=== PATIENT | female | born 1945 | race Caucasian/White ===

== ENCOUNTER → 2017-02-18 | Outpatient (CLI) | payer OTHER ==
[~2017-02-18] MED LIST: CADUET PO; CALCIUM500 MG PO; DOXYCYCLINE HY100 M1 PO; NAPROSYN500 MG PO; OSTEO BIFLEX PO; PREDNISONE PO; VENTOLIN5 MG/ML IH
--- NOTE | ~2017-02-18 | MY27 ---
[facility] A Service of [facility] RADIOLOGY TEXT RESULTS PATIENT: ROSAURA BLUNT LOCATION: [facility] : 47 UNIT #: [id number] AGE: [address]: SAI SHELBY MD SEX: F ORDER DR: [id number] [facility] [address] [place], [place] [address] [id number] O MR#: [id number] Acc #: [id number] NAME: ROSAURA BLUNT : 1945 SEX: F STUDY DATE/TIME: 02/18/2017 12:16 UNIT: [facility] ROOM: STUDY DESCRIPTION: MY [place]AK[place] SCREEN W/ CAD UNI LT Attending Physician: Sai Shelby M.D. Referring Physician: Sai Shelby M.D. Ordering Physician: Sai Shelby M.D. Primary Care Physician: Sai Shelby M.D. MEDICAL IMAGING REPORT This report is preliminary unless electronic signature is present EXAM Unilateral left digital screening mammogram, 02/18/2017, [facility]. HISTORY 71-year-old woman status post right mastectomy 1993 age 47. Annual screen. COMPARISON Mammograms date to 05/25/2005 with most recent 10/07/2015. TECHNIQUE Digital imaging of the left breast was completed utilizing two-view screening protocol. Review includes FDA-approved CAD device. FINDINGS Breast parenchyma is partially fatty replaced and mildly heterogeneous. There is no interval occurring mass. There are no suspicious microcalcifications and no architectural deformity. IMPRESSION Negative unilateral left mammogram. Status post right mastectomy. Annual screening recommended. Patients over the age of 40 are entered into a reminder system with target due date for the next mammogram. A result letter will also be sent to the patient. BIRADS: 1 Negative Dictated by... Aniket Ruiz M.D. [facility] A Service of [facility] RADIOLOGY TEXT RESULTS PATIENT: ROSAURA BLUNT LOCATION: [facility] : 47 UNIT #: [id number] AGE: [address]: SAI SHELBY MD SEX: F ORDER DR: THIS IS AN ELECTRONICALLY VERIFIED REPORT Aniket Ruiz M.D. at 02/18/2017 2:40 PM Fabiola TD: 02/18/2017 13:55 JOB #: [id number] MEDICAL IMAGING REPORT Page 1 of 1 COPY
== END | disposition home or self-care (01) ==
LOC: CWCC 11:15
DX: Z12.31 Encounter for screening mammogram for malignant neoplasm of breast (principal); Z90.11 Acquired absence of right breast and nipple
CPT/HCPCS: G0202